=== PATIENT | female | born 1975 ===

== ENCOUNTER 2017-01-27 17:50 | Emergency (ER) | payer OTHER, MEDICAID ==
[2017-01-27 17:59] VITALS: BP 135/91; PULSE 77; RESP 19; TEMP 97.5; O2SAT 100
[2017-01-27] MEDS ORDERED: Oxycodone/Acetaminophen 5/325 mg Tab PO STA (18:06)
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
--- NOTE | 2017-01-28 09:17 | RAD ---
PROCEDURE: Cervical Spine Radiographs. HISTORY: Pain. COMPARISON: None. FINDINGS: BONES: There is straightening of the cervical spine with loss of normal cervical lordosis. Vertebral alignment is normal. Vertebral height is maintained. There is no acute fracture or spondylolisthesis. . DISC SPACES: There is mild degenerative disc disease in the lower cervical spine. SOFT TISSUES: Normal. No prevertebral soft tissue swelling. OTHER FINDINGS: None. IMPRESSION: No acute fracture or spondylolisthesis. Straightening of the cervical spine may be positional or related to muscle spasm.
== END 2017-01-27 20:00 | disposition home or self-care (01) ==
LOC: H.ER 17:50
DX: S16.1XXA Strain of muscle, fascia and tendon at neck level, initial encounter (principal); V43.52XA Car driver injured in collision with other type car in traffic accident, initial encounter; Y92.410 Unspecified street and highway as the place of occurrence of the external cause